=== PATIENT | male | born 1960 | race Caucasian/White ===

== ENCOUNTER 2017-10-30 11:47 | Emergency (ER) | payer MEDICARE, MEDICAID ==
[2017-10-30 13:56] LABS: Hematocrit 40 % (42-52); Mean Corpuscular HGB Conc 35 g/dl (31-36); Mean Corpuscular Hemoglobin 33 pg (27-31); Mean Corpuscular Volume 92 fL (80-94); Mean Platelet Volume 10 um3 (7.4-10.4); Platelet Count 162 10^3/ul (150-450); Red Blood Count 4.32 10^6/ul (4.0-5.4); Red Cell Distribution Width 14 % (10.5-15); White Blood Count 5.4 10^3/ul (3.5-10.8)
--- NOTE | 2017-10-30 13:57 | RAD ---
HISTORY: Shortness of breath COMPARISONS: March 25, 2012 VIEWS: 4: Frontal dual-energy and lateral views of the chest. FINDINGS: CARDIOMEDIASTINAL SILHOUETTE: The cardiomediastinal silhouette is normal. TIERRA: The tierra are normal. PLEURA: The costophrenic angles are sharp. No pleural abnormalities are noted. LUNG PARENCHYMA: The lungs are clear. ABDOMEN: The upper abdomen is clear. There is no subphrenic gas. BONES AND SOFT TISSUES: No bone or soft tissue abnormalities are noted. OTHER: None. IMPRESSION: NO ACTIVE CARDIOPULMONARY DISEASE.
[2017-10-30] MEDS ORDERED: Iodixanol* (CONTRAST) 320 MG/ML 100 ML SDV IV ONE (14:29)
[2017-10-30 14:37] LABS: ABS Basophils 0 10^3/ul (0-0.2); ABS Eosinophils 0.1 10^3/ul (0-0.6); ABS Lymphocytes 2.1 10^3/ul (1.0-4.8); ABS Monocytes 0.4 10^3/ul (0-0.8); ABS Neutrophils 2.7 10^3/ul (1.5-7.7); ABS Nucleated RBC 0 10^3/ul; Eosinophil % 1.8 % (0-6); Lymphocyte % 38.4 % (25-47); Nucleated Red Blood Cells % 0
[2017-10-30] MEDS ORDERED: Magnesium Oxide TAB* 400 MG PO ONE (15:00)
[2017-10-30 15:06] LABS: Urine Appearance Clear; Urine Blood Negative (Negative); Urine Color Yellow; Urine Ketones Negative (Negative); Urine Protein Negative (Negative); Urine Specific Gravity 1.009 (1.010-1.030); Urine Urobilinogen Negative (Negative)
--- NOTE | 2017-10-30 15:53 | RAD ---
INDICATION: Abdominal pain. COMPARISON: Comparison is made with a prior CT of the abdomen and pelvis from May 20, 2007. TECHNIQUE: A CT scan of the abdomen and pelvis was performed with intravenous and oral contrast following intravenous injection of 141 ml of Visipaque 320 nonionic contrast. Contiguous axial sections were obtained from the lung bases through the symphysis pubis. Images were reconstructed in the coronal and sagittal planes. FINDINGS: The lung bases are clear. No pleural effusion is present. The liver is mildly enlarged and decreased in attenuation consistent with fatty infiltration. The patient is status post cholecystectomy. The spleen is within normal limits in size. The pancreas appears normal. There is a 1 cm left adrenal nodule which appears unchanged. The kidneys are normal in size. There is a small subcentimeter cyst in the upper pole of the right kidney. No hydronephrosis is present. The aorta is normal in caliber and demonstrates homogeneous contrast opacification. No significant enlarged retroperitoneal lymph nodes are seen. The stomach, small and large bowel appear nondistended. The appendix is within normal limits. There is a surgical anastomosis in the mid sigmoid colon. There are scattered diverticuli within the colon. There is a prominent diverticulum present laterally at the level of the anastomosis. There is no evidence for diverticulitis or colitis. No free intraperitoneal air or fluid is seen. No significant focal osseous abnormality is seen. IMPRESSION: 1. NO EVIDENCE FOR ACUTE FINDING OR CAUSE FOR THE PATIENT'S ABDOMINAL PAIN IS SEEN. 2. MILD HEPATOMEGALY AND HEPATIC STEATOSIS. 3. STATUS POST CHOLECYSTECTOMY. 4. STATUS POST PARTIAL RESECTION OF THE SIGMOID COLON.
[2017-10-30 16:58] VITALS: BP 164/90
--- NOTE | 2017-10-31 17:51 | ED ---
Geoffrey Gonzalez Angela, scribed for Raafel Cantu MD on 10/30/17 at 1309 . Abdominal Pain/Male - HPI Summary HPI Summary: This pt is a 57 y/o male presenting to [facility] c/o lower abd pain for a few weeks now. Pt additionally reports nausea, constipation, dizziness, and SOB. He rates his abd pain 5/10 in severity. Pt states chronic use of ibuprofen with recent increase in ibuprofen use. He states he had the flu last week and has also been taking cold medications. Pt denies vomiting, diarrhea, chest pain. His PCP (Dr. Coleman) scheduled him to have a colonoscopy in 2 weeks at [facility] in [place]. PMHx: colon resection, colostomy bag (removed), neuropathy. Pt is a current smoker and may have COPD. - History of Current Complaint Chief Complaint: EDAbdPain Stated Complaint: POSSIBLE IBUPROFEN OVERDOSE Time Seen by Provider: 10/30/17 12:58 Hx Obtained From: Patient Onset/Duration: Lasting Days, Still Present Timing: Lasting Weeks Severity Currently: Moderate Pain Intensity: 5 Pain Scale Used: 0-10 Numeric Location: Other - lower abd Radiates: No Aggravating Factor(s): Nothing Alleviating Factor(s): Nothing Associated Signs And Symptoms: Positive: Dizzy, Constipation, Nausea. Negative : Chest Pain, Vomiting, Diarrhea - Allergies/Home Medications Allergies/Adverse Reactions: Allergies Allergy/AdvReac Type Severity Reaction Status Date / Time MS Cephalexin [From Keflex] Allergy Unknown Unknown Verified 11/14/14 08:34 Reaction Details MS Penicillins [Penicillins] Allergy Unknown Unknown Verified 11/14/14 08:34 Reaction Details MS Varenicline [From Chantix] Allergy Unknown Unknown Verified 11/14/14 08:34 Reaction Details PMH/Surg Hx/FS Hx/Imm Hx Endocrine/Hematology History: Reports: Hx Diabetes - type 2 Cardiovascular History: Denies: Hx Hypertension Musculoskeletal History: Reports: Hx of Fracture(s) - Left leg, Other Musculoskeletal History - carpal tunnel Neurological History: Reports: Hx Peripheral Neuropathy Infectious Disease History: No Infectious Disease History: Denies: Traveled Outside the [place] in Last 30 Days - Family History Known Family History: Positive: Cardiac Disease - Father: [place] Family History: Father: stroke. Mother: depression. - Social History Alcohol Use: None Substance Use Type: Reports: None Smoking Status (MU): Current Every Day Smoker Review of Systems Negative: Fever, Chills Negative: Chest Pain Positive: Shortness Of Breath Gastrointestinal: Other - constipation Positive: Abdominal Pain, Nausea. Negative: Vomiting, Diarrhea Neurological: Other - POS: dizziness All Other Systems Reviewed And Are Negative: Yes Physical Exam - Summary Physical Exam Summary: VITAL SIGNS: Reviewed. GENERAL: Patient is a well-developed and nourished male who is lying comfortable in the stretcher. Patient is not in any acute respiratory distress. HEAD AND FACE: Normocephalic and atraumatic. EYES: PERRLA, EOMI x 2, No injected conjunctiva. EARS: Hearing grossly intact. Ear canals and tympanic membranes are WNL. MOUTH: Oropharynx within normal limits. NECK: Supple, trachea is midline, no adenopathy, no JVD. CHEST: Symmetric, no tenderness at palpation LUNGS: bilateral slight wheezing CVS: RRR, S1 and S2 present, no murmurs or gallops appreciated. ABDOMEN: Soft. Mild tenderness in lower abd without rebound or guarding. No signs of distention. Positive bowel sounds. No masses palpated. No abdominal bruit or pulsations. EXTREMITIES: FROM in all major joints, no edema, no cyanosis or clubbing. NEURO: Alert and oriented x 3. No acute neurological deficits. Speech is normal. SKIN: Dry and warm. Multiple well healed scars on abd. Triage Information Reviewed: Yes Vital Signs On Initial Exam: Initial Vitals Temp Pulse Resp BP Pulse Ox 95.4 F 101 26 222/148 97 10/30/17 11:49 10/30/17 11:49 10/30/17 11:49 10/30/17 11:49 10/30/17 11:49 Vital Signs Reviewed: Yes Diagnostics - Vital Signs Vital Signs Temp Pulse Resp BP Pulse Ox 10/30/17 11:49 95.4 F 101 26 222/148 97 - Laboratory Lab Results: Lab Results 10/30/17 10/30/17 10/30/17 Range/Units 13:48 13:48 13:48 WBC 5.4 (3.5-10.8) 10^3/ul RBC 4.32 (4.0-5.4) 10^6/ul Hgb 14.0 (14.0-18.0) g/dl Hct 40 L (42-52) % MCV 92 (80-94) fL MCH 33 H (27-31) pg MCHC 35 (31-36) g/dl RDW 14 (10.5-15) % Plt Count 162 (150-450) 10^3/ul MPV 10 (7.4-10.4) um3 Neut % (Auto) 51.2 (38-83) % Lymph % (Auto) 38.4 (25-47) % Dawson % (Auto) 8.0 (1-9) % Eos % (Auto) 1.8 (0-6) % Baso % (Auto) 0.6 (0-2) % Absolute Neuts (auto) 2.7 (1.5-7.7) 10^3/ul Absolute Lymphs (auto) 2.1 (1.0-4.8) 10^3/ul Absolute Monos (auto) 0.4 (0-0.8) 10^3/ul Absolute Eos (auto) 0.1 (0-0.6) 10^3/ul Absolute Basos (auto) 0 (0-0.2) 10^3/ul Absolute Nucleated RBC 0 10^3/ul Nucleated RBC % 0 Giant Platelets Present Sodium 135 (133-145) mmol/L Potassium 3.8 (3.5-5.0) mmol/L Chloride 103 (101-111) mmol/L Carbon Dioxide 28 (22-32) mmol/L Anion Gap 4 (2-11) mmol/L BUN 8 (6-24) mg/dL Creatinine 0.74 (0.67-1.17) mg/dL Est GFR ( Amer) 140.2 (>60) Est GFR (Non-Af Amer) 109.0 (>60) BUN/Creatinine Ratio 10.8 (8-20) Glucose 218 H (70-100) mg/dL Calcium 9.2 (8.6-10.3) mg/dL Magnesium 1.6 L (1.9-2.7) mg/dL Total Bilirubin 0.60 (0.2-1.0) mg/dL AST 19 (13-39) U/L ALT 19 (7-52) U/L Alkaline Phosphatase 72 (34-104) U/L Troponin I 0.01 (<0.04) ng/mL C-Reactive Protein 1.48 (< 5.00) mg/L B-Natriuretic Peptide 47 ( - 100) pg/mL Total Protein 6.8 (6.4-8.9) g/dL Albumin 3.8 (3.2-5.2) g/dL Globulin 3.0 (2-4) g/dL Albumin/Globulin Ratio 1.3 (1-3) Lipase 18 (11.0-82.0) U/L Urine Color Urine Appearance Urine pH (5-9) Ur Specific [place] (1.010-1.030) Urine Protein (Negative) Urine Ketones (Negative) Urine Blood (Negative) Urine Nitrate (Negative) Urine Bilirubin (Negative) Urine Urobilinogen (Negative) Ur Leukocyte Esterase (Negative) Urine Glucose (Negative) 10/30/17 Range/Units 14:44 WBC (3.5-10.8) 10^3/ul RBC (4.0-5.4) 10^6/ul Hgb (14.0-18.0) g/dl Hct (42-52) % MCV (80-94) fL MCH (27-31) pg MCHC (31-36) g/dl RDW (10.5-15) % Plt Count (150-450) 10^3/ul MPV (7.4-10.4) um3 Neut % (Auto) (38-83) % Lymph % (Auto) (25-47) % Dawson % (Auto) (1-9) % Eos % (Auto) (0-6) % Baso % (Auto) (0-2) % Absolute Neuts (auto) (1.5-7.7) 10^3/ul Absolute Lymphs (auto) (1.0-4.8) 10^3/ul Absolute Monos (auto) (0-0.8) 10^3/ul Absolute Eos (auto) (0-0.6) 10^3/ul Absolute Basos (auto) (0-0.2) 10^3/ul Absolute Nucleated RBC 10^3/ul Nucleated RBC % Giant Platelets Sodium (133-145) mmol/L Potassium (3.5-5.0) mmol/L Chloride (101-111) mmol/L Carbon Dioxide (22-32) mmol/L Anion Gap (2-11) mmol/L BUN (6-24) mg/dL Creatinine (0.67-1.17) mg/dL Est GFR ( Amer) (>60) Est GFR (Non-Af Amer) (>60) BUN/Creatinine Ratio (8-20) Glucose (70-100) mg/dL Calcium (8.6-10.3) mg/dL Magnesium (1.9-2.7) mg/dL Total Bilirubin (0.2-1.0) mg/dL AST (13-39) U/L ALT (7-52) U/L Alkaline Phosphatase (34-104) U/L Troponin I (<0.04) ng/mL C-Reactive Protein (< 5.00) mg/L B-Natriuretic Peptide ( - 100) pg/mL Total Protein (6.4-8.9) g/dL Albumin (3.2-5.2) g/dL Globulin (2-4) g/dL Albumin/Globulin Ratio (1-3) Lipase (11.0-82.0) U/L Urine Color Yellow Urine Appearance Clear Urine pH 6.0 (5-9) Ur Specific [place] 1.009 L (1.010-1.030) Urine Protein Negative (Negative) Urine Ketones Negative (Negative) Urine Blood Negative (Negative) Urine Nitrate Negative (Negative) Urine Bilirubin Negative (Negative) Urine Urobilinogen Negative (Negative) Ur Leukocyte Esterase Negative (Negative) Urine Glucose 3+(>=500 mg/dl) H (Negative) Result Diagrams: 10/30/17 13:48 10/30/17 13:48 Lab Statement: Any lab studies that have been ordered have been reviewed, and results considered in the medical decision making process. - Radiology Chest XR Xray Interpretation: No Acute Changes - IMPRESSION: No active cardiopulmonary disease. Dr. Cantu has reviewed this radiology report. Radiology Interpretation Completed By: Radiologist - CT Abdomen/Pelvis CT CT Interpretation: Positive (See Comments) - IMPRESSION: 1. No evidence for acute finding or cause for the patient's abdominal pain is seen. 2. Mild hepatomegaly and hepatic steatosis. 3. Status post cholecystectomy. 4. Status post partial resection of the sigmoid colon. Dr. Cantu has reviewed this radiology report. CT Interpretation Completed By: Radiologist - EKG 13:07 Cardiac Rate: NL EKG Rhythm: Sinus Rhythm - at 71 bpm EKG Interpretation: No ST elevation. Normal axis. Re-Evaluation - Re-Evaluation First Eval Re-Evaluation Time: 16:40 Comment: I discussed XR, CT and lab results with the pt. Abdominal Pain Fem Course/Dx - Course Course Of Treatment: This pt is a 57 y/o male presenting to [facility] c/o lower abd pain for a few weeks now. Pt additionally reports nausea, constipation, dizziness, and SOB. He rates his abd pain 5/10 in severity. Pt states chronic use of ibuprofen with recent increase in ibuprofen use. He states he had the flu last week and has also been taking cold medications. Pt denies vomiting, diarrhea, chest pain. His PCP (Dr. Coleman) scheduled him to have a colonoscopy in 2 weeks at [facility] in [place]. PMHx: colon resection, colostomy bag (removed) , neuropathy. Pt is a current smoker and may have COPD. Test results without any significant abnormalities except for glucose of 218. Urinalysis is negative for UTI. Abdomen/pelvis CT shows 1. No evidence for acute finding or cause for the patient's abdominal pain is seen. 2. Mild hepatomegaly and hepatic steatosis. 3. Status post cholecystectomy. 4. Status post partial resection of the sigmoid colon. In the ED course I believe the symptoms are secondary to constipation since he has not had a bowel movement in 3 days. The pt also has runny nose, nasal congestion, and dry cough. Chest XR ruled out pneumonia. I will treat pt as presumptive influenza and will give the pt a prescription for Tamiflu. I discussed the plan with the pt and he agrees. Pt is hemodynamically stable, alert and oriented x3. - Diagnoses Differential Diagnosis/HQI/PQRI: Appendicitis, Bowel Obstruction, Constipation, Diverticulitis, Renal Colic, Urinary Tract Infection Provider Diagnoses: Abdominal pain, Constipation Discharge - Discharge Plan Condition: Stable Disposition: HOME Prescriptions: Oseltamivir CAP* [Tamiflu CAP*] 75 mg PO BID #10 cap Polyethylene Glycol 3350* [Miralax*] 17 gm PO DAILY #12 packet Patient Education Materials: Constipation (ED), Abdominal Pain (ED) Referrals: Yessica Coleman MD [Primary Care Provider] - 3 Days Additional Instructions: Please follow up with your primary care provider. RETURN TO THE ED FOR ANY WORSENING SYMPTOMS. The documentation as recorded by the scribe, Hale,Dulce Maria accurately reflects the service I personally performed and the decisions made by me, Rafael Cantu MD.
== END 2017-10-30 16:57 | disposition home or self-care (01) ==
LOC: ED 11:47
DX: R10.30 Lower abdominal pain, unspecified (principal); K59.00 Constipation, unspecified; R09.81 Nasal congestion; R05 Cough; K76.0 Fatty (change of) liver, not elsewhere classified; F17.200 Nicotine dependence, unspecified, uncomplicated; Z90.49 Acquired absence of other specified parts of digestive tract; Z88.3 Allergy status to other anti-infective agents; Z88.0 Allergy status to penicillin; Z88.8 Allergy status to other drugs, medicaments and biological substances
CPT/HCPCS: 36415; 71046; 74177; 80053; 81003; 83690; 83735; 83880; 84484; 85025; 86140; 93005; 99282; Q9967

== ENCOUNTER 2023-04-12 17:21 | Inpatient (IN) ==
[2023-04-12] MEDS ORDERED: NS 0.9% 1000 ml BAG 1,000 ML IV ONE (18:19)
[2023-04-12] MEDS ORDERED: Ondansetron 4 mg VIAL 2 MG/ML 2 ml VIAL IV ONE (18:25)
[2023-04-12] MEDS ORDERED: Morphine 4 MG/ML VIAL (1 ml) IV ONE ×2 (18:25→23:30)
[2023-04-12 18:45] LABS: ABS Lymphocytes 0.6 10^3/uL (1.0-4.8); ABS Monocytes 0.5 10^3/uL (0.0-1.1); ABS Neutrophils 3.2 10^3/uL (1.5-7.6); Eosinophil % 0.4 %; Hematocrit 36.8 % (38-53); Lymphocyte % 13.7 %; Mean Corpuscular Hemoglobin 33.3 pg (27-33); Mean Corpuscular Hgb Conc 35.4 g/dL (31-36); Mean Corpuscular Volume 93.9 fL (80-97); Mean Platelet Volume 8.7 fL (7.5-11.2); Nucleated Red Blood Cells % 0.1 /100 WBC (0.0-0.4); Platelet Count 249 10^3/uL (150-450); Red Blood Count 3.91 10^6/uL (4.06-5.63); Red Cell Distribution Width 13.5 % (12-17); White Blood Count 4.3 10^3/uL (3.6-10.2)
[2023-04-12 19:24] LABS: TSH Ultra Thyroid Stim Horm 0.48 mcIU/mL (0.34-5.60)
[2023-04-12 19:27] LABS: Albumin 3.4 g/dL (3.2-5.2); Albumin/Globulin Ratio 1.1 (1-3); Calcium 9.3 mg/dL (8.6-10.3); Creatinine, Serum 0.77 mg/dL (0.67-1.17); Magnesium 1.4 mg/dL (1.9-2.7); Potassium 3.8 mmol/L (3.5-5.0); Total Bilirubin 0.7 mg/dL (0.2-1.0); Total Protein 6.4 g/dL (6.4-8.9); eGFR CKD-EPI 101.2 (>60)
[2023-04-12] MEDS ORDERED: Iodixanol (CONTRAST) 320 MG/ML 100 ML SDV IV ONE (21:35)
[2023-04-12] MEDS ORDERED: Magnesium Sulfate 2 gm BAG 2 GM/50 ML BAG IVPB ONE (21:36)
[2023-04-12 22:36] LABS: Urine Appearance Clear; Urine Bilirubin Negative (Negative); Urine Blood Negative (Negative); Urine Color Yellow; Urine Glucose 2+(150 mg/dL) (Negative); Urine Ketones 1+ (Negative); Urine Nitrite Negative (Negative); Urine Protein Negative (Negative); Urine Urobilinogen Negative (Negative)
[2023-04-12] MEDS ORDERED: oxyCODONE/Acetamin 5/325 mg TAB PO ONE (22:56)
[2023-04-12] MEDS ORDERED: Hemorrhoidal OINT 1 TUBE PR ONE (23:43)
[2023-04-12] MEDS ORDERED: Ondansetron 4 mg VIAL 2 MG/ML 2 ml VIAL IV PRN (23:53)
[2023-04-12] MEDS: Witch Hazel PAD JAR TOPICAL SCH (23:59)
[2023-04-13] MEDS: Lactated Ringers 1000 ml BAG 1,000 ML IV SCH ×2 (00:42→13:08)
[2023-04-13] MEDS: HYDROmorphone 0.5 MG/0.5 ML SYRINGE IV SLOW PU PRN ×4 (01:53→19:58)
[2023-04-13] MEDS ORDERED: Droperidol 5 MG/2 ML 2 ML VIAL IV ONE (04:09)
[2023-04-13] MEDS ORDERED: HYDROmorphone 1 MG/1 ML SYRINGE IV SLOW PU ONE (04:28)
[2023-04-13 05:10] LABS: ABS Eosinophils 0.1 10^3/uL (0.0-0.5); ABS Lymphocytes 0.9 10^3/uL (1.0-4.8); ABS Monocytes 0.5 10^3/uL (0.0-1.1); ABS Neutrophils 1.7 10^3/uL (1.5-7.6); Hematocrit 33.6 % (38-53); Lymphocyte % 27.1 %; Mean Corpuscular Hgb Conc 35.8 g/dL (31-36); Mean Platelet Volume 8.6 fL (7.5-11.2); Nucleated Red Blood Cells % 0.1 /100 WBC (0.0-0.4); Platelet Count 213 10^3/uL (150-450); Red Blood Count 3.65 10^6/uL (4.06-5.63); Red Cell Distribution Width 13.4 % (12-17); White Blood Count 3.2 10^3/uL (3.6-10.2)
[2023-04-13 05:28] LABS: Calcium 8.8 mg/dL (8.6-10.3); Creatinine, Serum 0.74 mg/dL (0.67-1.17); Magnesium 1.6 mg/dL (1.9-2.7); Potassium 3.6 mmol/L (3.5-5.0); eGFR CKD-EPI 102.4 (>60)
[2023-04-13] MEDS ORDERED: Magnesium Sulfate IV 3 GM in NS 0.9% 100 ml BAG 100 ML IVPB ONE (07:14)
[2023-04-13] MEDS: Witch Hazel PAD JAR TOPICAL SCH (09:05)
[2023-04-13] MEDS: Insulin GLARGINE 100 un/ml 10 ml VIAL SUBCUT SCH ×2 (09:06→20:21)
[2023-04-13] MEDS ORDERED: Benzocaine (plain) Lozenge 15 MG PO PRN (11:49)
[2023-04-13] MEDS: DULoxetine DR 30 mg CAP PO SCH (13:01)
[2023-04-14] MEDS: HYDROmorphone 0.5 MG/0.5 ML SYRINGE IV SLOW PU PRN ×2 (01:40→08:28)
[2023-04-14 07:37] LABS: ABS Eosinophils 0.1 10^3/uL (0.0-0.5); ABS Lymphocytes 0.9 10^3/uL (1.0-4.8); ABS Monocytes 0.5 10^3/uL (0.0-1.1); ABS Neutrophils 2.5 10^3/uL (1.5-7.6); Eosinophil % 3.5 %; Hematocrit 34.8 % (38-53); Hemoglobin 12.6 g/dL (13.2-16.3); Lymphocyte % 21.8 %; Mean Corpuscular Hemoglobin 33.5 pg (27-33); Mean Platelet Volume 8.8 fL (7.5-11.2); Platelet Count 225 10^3/uL (150-450); Red Blood Count 3.75 10^6/uL (4.06-5.63); Red Cell Distribution Width 13.6 % (12-17)
[2023-04-14 07:49] LABS: Calcium 8.9 mg/dL (8.6-10.3); Creatinine, Serum 0.66 mg/dL (0.67-1.17); Magnesium 1.6 mg/dL (1.9-2.7); Potassium 3.6 mmol/L (3.5-5.0)
[2023-04-14] MEDS ORDERED: Magnesium Sulf 4 GM/100 ML IV 4,000 MG/100 ML BAG IVPB ONE (07:59)
[2023-04-14] MEDS: Insulin GLARGINE 100 un/ml 10 ml VIAL SUBCUT SCH ×2 (08:28→21:19)
[2023-04-14] MEDS: Witch Hazel PAD JAR TOPICAL SCH (10:15)
[2023-04-14] MEDS: DULoxetine DR 30 mg CAP PO SCH (10:15)
[2023-04-14 17:02] LABS: Calcium 8.8 mg/dL (8.6-10.3); Creatinine, Serum 0.65 mg/dL (0.67-1.17); Potassium 3.5 mmol/L (3.5-5.0); eGFR CKD-EPI 106.5 (>60)
[2023-04-15 06:23] LABS: ABS Eosinophils 0.1 10^3/uL (0.0-0.5); ABS Lymphocytes 0.9 10^3/uL (1.0-4.8); ABS Monocytes 0.5 10^3/uL (0.0-1.1); Eosinophil % 3.9 %; Hematocrit 33.6 % (38-53); Hemoglobin 12.4 g/dL (13.2-16.3); Lymphocyte % 25.9 %; Mean Corpuscular Hemoglobin 33.8 pg (27-33); Mean Corpuscular Hgb Conc 36.8 g/dL (31-36); Mean Corpuscular Volume 91.9 fL (80-97); Mean Platelet Volume 8.7 fL (7.5-11.2); Platelet Count 200 10^3/uL (150-450); Red Blood Count 3.66 10^6/uL (4.06-5.63); Red Cell Distribution Width 13.2 % (12-17); White Blood Count 3.6 10^3/uL (3.6-10.2)
[2023-04-15] MEDS ORDERED: Magnesium Sulfate 2 gm BAG 2 GM/50 ML BAG IVPB ONE (07:24)
[2023-04-15] MEDS: Insulin GLARGINE 100 un/ml 10 ml VIAL SUBCUT SCH (08:07)
[2023-04-15] MEDS: DULoxetine DR 30 mg CAP PO SCH (08:08)
[2023-04-15] MEDS: Witch Hazel PAD JAR TOPICAL SCH (08:09)
[2023-04-15 09:38] VITALS: BP 146/77
[2023-04-15] MEDS ORDERED: Polyethylene Glycol 3350 17 GM PACKET PO SCH (10:00)
== END 2023-04-15 12:00 | disposition home or self-care (01) | DRG 254 ==
LOC: EDHOLD 17:21 → ED 17:21 → SUATTDRO 23:53 → OBSVTOIN 23:53 → MED 04-13 14:43
PROVIDERS: ADMIT Student in an Organized Health Care Education/Training Program; ATTEND Internal Medicine

== ENCOUNTER 2023-09-05 10:16 | Observation (INO) ==
[~2023-09-05 10:16] MED LIST: Buffered Lidocaine 1% SYRIN 1 ml INTRADERM ONE; Famotidine IV 10 MG/ML 2 ml VIAL (20 mg) IV ONE; HYDROcodone/ACETAMIN 5/325 mg TAB PO PRN; Lactated Ringers 1000 ml BAG 1,000 ML IV SCH; Metoclopramide 5 MG/ML VIAL (10 mg) IV PRN; Naloxone 0.4 mg VIAL 0.4 mg/ml 1 ml VIAL IV PRN; Ondansetron 4 mg VIAL 2 MG/ML 2 ml VIAL IV PRN
[2023-09-05] MEDS ORDERED: Vancomycin 1,500 MG in NS 0.9% 250 ml 250 ML IVPB ONE (12:00)
[2023-09-05] MEDS ORDERED: Famotidine IV 10 MG/ML 2 ml VIAL (20 mg) ONE (12:00)
[2023-09-05 12:12] LABS: Rapid COVID-19 Molecular Undetected (Undetected)
[2023-09-05] MEDS ORDERED: Bupivacaine 0.25% SDV 30 ML ONE (12:16)
[2023-09-05] MEDS ORDERED: Propofol 10 MG/ML 20 ML BTL ONE (12:21)
[2023-09-05] MEDS ORDERED: Lidocaine 2% PF 5 ML VIAL ONE ×2 (12:21→13:00)
[2023-09-05] MEDS ORDERED: fentaNYL 100 mcg/2 ml 50 MCG/ML VIAL ONE ×2 (12:22→15:03)
[2023-09-05] MEDS ORDERED: Midazolam 2 mg/2 ml VIAL 1 mg/ml 2 ml VIAL (2 mg) ONE (12:22)
[2023-09-05] MEDS ORDERED: Bupivacaine 0.5% SDV PF 30ML VIAL ONE ×2 (12:26→12:58)
[2023-09-05] MEDS ORDERED: Ondansetron 4 mg VIAL 2 MG/ML 2 ml VIAL ONE (13:52)
[2023-09-05] MEDS ORDERED: Naloxone Nasal Spray 4 MG/0.1 ML NASAL.SPR INTRANASAL PRN (14:53)
[2023-09-05] MEDS: fentaNYL 100 mcg/2 ml 50 MCG/ML VIAL IV PRN ×2 (15:05→15:33)
[2023-09-05] MEDS ORDERED: Dextrose 50% Syringe 50 ml 25 GM/50 ML SYRINGE IV PUSH PRN (15:18)
[2023-09-05] MEDS ORDERED: Labetalol IV 5 MG/ML 20 ml VIAL ONE (15:46)
[2023-09-05] MEDS ORDERED: Labetalol IV 5 MG/ML 20 ml VIAL IV PUSH PRN (15:59)
[2023-09-05] MEDS ORDERED: Ondansetron 4 mg VIAL 2 MG/ML 2 ml VIAL IV PRN (16:24)
[2023-09-05] MEDS ORDERED: Vancomycin per Pharmacy 1 EA NOTE FOLLOW UP SCH (16:24)
[2023-09-05] MEDS ORDERED: Ondansetron ODT 4 mg TAB 4 MG TAB PO PRN (16:24)
[2023-09-05] MEDS ORDERED: Magnesium Hydroxide LIQ 30 ML UDC PO PRN (16:24)
[2023-09-05] MEDS ORDERED: Lactulose 30 ml UDC PO PRN (16:24)
[2023-09-05] MEDS ORDERED: Polyethylene Glycol 3350 17 GM PACKET PO PRN (17:20)
[2023-09-05] MEDS ORDERED: Morphine ORAL.SOLN 10 mg 2 mg/ml UDC 5 ml (10 mg) PO PRN (17:33)
[2023-09-05] MEDS: Morphine ORAL.SOLN 10 mg 2 mg/ml UDC 5 ml (10 mg) PO PRN (17:47)
[2023-09-05] MEDS: Magnesium Hydroxide LIQ 30 ML UDC PO SCH (21:26)
[2023-09-05] MEDS: Morphine 2 MG/ML SYRINGE IV PRN (22:58)
[2023-09-05] MEDS: Vancomycin 1000 MG in NS 0.9% 250 ML IVPB SCH (23:06)
[2023-09-06 06:30] LABS: Hematocrit 31.3 % (38-53); Hemoglobin 10.9 g/dL (13.2-16.3); Mean Corpuscular Hemoglobin 35.6 pg (27-33); Mean Corpuscular Hgb Conc 34.8 g/dL (31-36); Mean Corpuscular Volume 102.1 fL (80-97); Platelet Count 211 10^3/uL (150-450); Red Blood Count 3.07 10^6/uL (4.06-5.63); Red Cell Distribution Width 14.6 % (12-17); White Blood Count 9.6 10^3/uL (3.6-10.2)
[2023-09-06 07:14] LABS: Calcium 8.8 mg/dL (8.6-10.3); Creatinine, Serum 0.75 mg/dL (0.67-1.17); Magnesium 1.5 mg/dL (1.9-2.7); Potassium 4.3 mmol/L (3.5-5.0); eGFR CKD-EPI 101.4 (>60)
[2023-09-06] MEDS: Vitamin THERAPEUTIC TAB PO SCH (09:01)
[2023-09-06] MEDS: DULoxetine DR 30 mg CAP PO SCH (09:11)
[2023-09-06] MEDS: Vancomycin 1000 MG in NS 0.9% 250 ML IVPB SCH ×3 (09:11→17:53)
[2023-09-06] MEDS: Magnesium Hydroxide LIQ 30 ML UDC PO SCH ×2 (09:11→21:20)
[2023-09-06] MEDS: Morphine ORAL.SOLN 10 mg 2 mg/ml UDC 5 ml (10 mg) PO PRN (10:02)
[2023-09-06] MEDS ORDERED: Saline NASAL SPRAY 0.65% BTL BOTH NARES PRN (10:06)
[2023-09-06] MEDS: Enoxaparin 40 MG/0.4 ML SYR SUBCUT SCH (14:00)
[2023-09-06] MEDS ORDERED: Vancomycin Trough Check NOTE FOLLOW UP ONE (16:30)
[2023-09-06] MEDS: Morphine 2 MG/ML SYRINGE IV PRN (23:20)
[2023-09-07 06:17] LABS: Platelet Count 179 10^3/uL (150-450)
[2023-09-07] MEDS ORDERED: Vancomycin 1,500 MG in NS 0.9% 250 ml 250 ML IVPB SCH (06:30)
[2023-09-07 06:58] LABS: Hematocrit 31.4 % (38-53); Hemoglobin 10.8 g/dL (13.2-16.3); Mean Platelet Volume 9.4 fL (7.5-11.2)
[2023-09-07] MEDS ORDERED: Magnesium Sulfate 2 gm BAG 2 GM/50 ML BAG IVPB ONE (07:25)
[2023-09-07] MEDS: Magnesium Hydroxide LIQ 30 ML UDC PO SCH (09:01)
[2023-09-07] MEDS: DULoxetine DR 30 mg CAP PO SCH (09:02)
[2023-09-07] MEDS: Vitamin THERAPEUTIC TAB PO SCH (09:03)
[2023-09-07] MEDS ORDERED: Magnesium Sulfate IV 1GM/100ML 1 GM/100 ML BAG IV ONE (09:25)
[2023-09-07] MEDS ORDERED: Oritavancin 400 mg/40 mL Vial 1,200 MG in D5W 1000 ML BAG 880 ML IV ONE (10:00)
[2023-09-07] MEDS: Enoxaparin 40 MG/0.4 ML SYR SUBCUT SCH (13:26)
[2023-09-07 16:51] VITALS: BP 140/64
[2023-09-08] MEDS ORDERED: Vancomycin Trough Check NOTE FOLLOW UP ONE (06:00)
== END 2023-09-07 18:30 | disposition home or self-care (01) ==
LOC: OR 10:16 → SSU 10:16
PROVIDERS: ADMIT Orthopaedic Surgery; ATTEND Orthopaedic Surgery

== ENCOUNTER 2023-09-09 16:52 | Inpatient (IN) ==
[2023-09-09 18:28] LABS: ABS Eosinophils 0.1 10^3/uL (0.0-0.5); ABS Lymphocytes 0.4 10^3/uL (1.0-4.8); ABS Monocytes 0.7 10^3/uL (0.0-1.1); ABS Neutrophils 7.6 10^3/uL (1.5-7.6); Eosinophil % 0.6 %; Hematocrit 31.2 % (38-53); Hemoglobin 10.7 g/dL (13.2-16.3); Lymphocyte % 4.4 %; Mean Corpuscular Hgb Conc 34.2 g/dL (31-36); Mean Corpuscular Volume 102.4 fL (80-97); Mean Platelet Volume 9.1 fL (7.5-11.2); Platelet Count 236 10^3/uL (150-450); Red Blood Count 3.05 10^6/uL (4.06-5.63); Red Cell Distribution Width 14.6 % (12-17); White Blood Count 8.7 10^3/uL (3.6-10.2)
[2023-09-09 18:49] LABS: Albumin 3.7 g/dL (3.2-5.2); Albumin/Globulin Ratio 0.8 (1-3); C Reactive Protein 230.33 mg/L (<8.01); Calcium 9.5 mg/dL (8.6-10.3); Creatinine, Serum 0.95 mg/dL (0.67-1.17); Globulin 4.6 g/dL (2-4); Potassium 3.9 mmol/L (3.5-5.0); Total Bilirubin 0.5 mg/dL (0.2-1.0); Total Protein 8.3 g/dL (6.4-8.9); eGFR CKD-EPI 89.9 (>60)
[2023-09-09] MEDS ORDERED: Cefepime 2 GM in Dextrose 2 GM/50 ML BAG IV ONE (19:30)
[2023-09-09] MEDS ORDERED: Vancomycin 1,500 MG in NS 0.9% 250 ml 250 ML IVPB ONE (20:00)
[2023-09-09] MEDS ORDERED: NS 0.9% 1000 ml BAG 1,000 ML IV ONE (20:24)
[2023-09-09] MEDS ORDERED: Naloxone Nasal Spray 4 MG/0.1 ML NASAL.SPR INTRANASAL PRN (21:36)
[2023-09-09] MEDS: Insulin GLARGINE 100 un/ml 10 ml VIAL SUBCUT SCH (22:34)
[2023-09-09] MEDS: Heparin 5000 UNITS/ML 1 mL VIAL SUBCUT SCH (22:37)
[2023-09-10] MEDS ORDERED: Vancomycin per Pharmacy 1 EA NOTE FOLLOW UP SCH (05:00)
[2023-09-10] MEDS: Heparin 5000 UNITS/ML 1 mL VIAL SUBCUT SCH ×3 (05:56→22:21)
[2023-09-10 06:23] LABS: ABS Lymphocytes 0.2 10^3/uL (1.0-4.8); ABS Monocytes 0.7 10^3/uL (0.0-1.1); ABS Neutrophils 5.6 10^3/uL (1.5-7.6); Eosinophil % 0.5 %; Hematocrit 25.4 % (38-53); Hemoglobin 8.9 g/dL (13.2-16.3); Lymphocyte % 3.6 %; Mean Corpuscular Hemoglobin 35.4 pg (27-33); Mean Corpuscular Hgb Conc 34.9 g/dL (31-36); Mean Corpuscular Volume 101.5 fL (80-97); Mean Platelet Volume 8.6 fL (7.5-11.2); Platelet Count 196 10^3/uL (150-450); Red Blood Count 2.51 10^6/uL (4.06-5.63); Red Cell Distribution Width 14.4 % (12-17); White Blood Count 6.6 10^3/uL (3.6-10.2)
[2023-09-10 06:41] LABS: Calcium 8.1 mg/dL (8.6-10.3); Creatinine, Serum 0.58 mg/dL (0.67-1.17); Magnesium 1.6 mg/dL (1.9-2.7); eGFR CKD-EPI 109.6 (>60)
[2023-09-10] MEDS ORDERED: Potassium Chlor 20 meq TAB.ER PO ONE (07:28)
[2023-09-10] MEDS: DULoxetine DR 30 mg CAP PO SCH (08:15)
[2023-09-10] MEDS ORDERED: Vancomycin 1,500 MG in NS 0.9% 250 ml 250 ML IVPB SCH (09:00)
[2023-09-10] MEDS ORDERED: Albuterol HFA INHALER 8 gm MDI INH PRN (09:02)
[2023-09-10] MEDS: Mometasone/Formoter 100/5 MDI INH SCH ×2 (10:52→20:03)
[2023-09-10] MEDS: Insulin GLARGINE 100 un/ml 10 ml VIAL SUBCUT SCH ×2 (11:06→22:21)
[2023-09-10] MEDS: Morphine ORAL.SOLN 10 mg 2 mg/ml UDC 5 ml (10 mg) PO PRN ×2 (12:43→17:23)
[2023-09-10] MEDS: Amoxicillin/Clavul 500/125 TAB (Augmentin 500 mg tab) PO SCH ×2 (12:44→22:23)
[2023-09-11] MEDS: Morphine ORAL.SOLN 10 mg 2 mg/ml UDC 5 ml (10 mg) PO PRN ×3 (03:41→20:24)
[2023-09-11] MEDS: Heparin 5000 UNITS/ML 1 mL VIAL SUBCUT SCH ×3 (06:27→20:25)
[2023-09-11] MEDS ORDERED: Vancomycin Trough Check NOTE FOLLOW UP ONE (08:30)
[2023-09-11] MEDS: Mometasone/Formoter 100/5 MDI INH SCH ×2 (08:39→19:29)
[2023-09-11] MEDS: DULoxetine DR 30 mg CAP PO SCH ×2 (09:43→20:25)
[2023-09-11] MEDS: Insulin GLARGINE 100 un/ml 10 ml VIAL SUBCUT SCH ×2 (09:43→20:24)
[2023-09-11] MEDS: Amoxicillin/Clavul 500/125 TAB (Augmentin 500 mg tab) PO SCH (09:44)
[2023-09-11 09:52] LABS: ABS Lymphocytes 0.6 10^3/uL (1.0-4.8); ABS Monocytes 0.8 10^3/uL (0.0-1.1); ABS Neutrophils 5.8 10^3/uL (1.5-7.6); ABS Nucleated RBC 0.01 10^3/ul; Eosinophil % 0.4 %; Hematocrit 29.2 % (38-53); Hemoglobin 9.9 g/dL (13.2-16.3); Lymphocyte % 8.9 %; Mean Corpuscular Hemoglobin 34.4 pg (27-33); Mean Corpuscular Volume 101.1 fL (80-97); Mean Platelet Volume 9.2 fL (7.5-11.2); Nucleated Red Blood Cells % 0.1 %/100WBC (0.0-0.8); Platelet Count 270 10^3/uL (150-450); Red Blood Count 2.89 10^6/uL (4.06-5.63); Red Cell Distribution Width 14.5 % (12-17); White Blood Count 7.3 10^3/uL (3.6-10.2)
[2023-09-11 10:22] LABS: C Reactive Protein 212.54 mg/L (<8.01); Calcium 9.1 mg/dL (8.6-10.3); Creatinine, Serum 0.64 mg/dL (0.67-1.17); Magnesium 1.6 mg/dL (1.9-2.7); Potassium 3.8 mmol/L (3.5-5.0); eGFR CKD-EPI 106.4 (>60)
[2023-09-11 10:46] LABS: Folate 11.66 ng/mL (5.90-24.80)
[2023-09-11] MEDS: Cyanocobalamin INJ 1,000 MCG/ML VIAL 1 ML VIAL IM SCH (12:53)
[2023-09-11] MEDS ORDERED: Magnesium Sulfate 2 gm BAG 2 GM/50 ML BAG IVPB ONE (13:39)
[2023-09-11] MEDS ORDERED: Senna TAB 8.6 mg TAB PO PRN (13:53)
[2023-09-11] MEDS ORDERED: Magnesium Hydroxide LIQ 30 ML UDC PO PRN (13:53)
[2023-09-11] MEDS ORDERED: Zosyn per Pharmacy NOTE FOLLOW UP SCH (14:00)
[2023-09-11] MEDS ORDERED: Vancomycin per Pharmacy 1 EA NOTE FOLLOW UP SCH (14:00)
[2023-09-11] MEDS ORDERED: Vancomycin 1,500 MG in NS 0.9% 250 ml 250 ML IVPB ONE (14:00)
[2023-09-11] MEDS ORDERED: Piperacillin/Tazobac 3.375 BAG 3.375 GM/100 ML BAG IV ONE (15:00)
[2023-09-11] MEDS ORDERED: Magnesium Sulfate IV 1GM/100ML 1 GM/100 ML BAG IV ONE (15:39)
[2023-09-11] MEDS ORDERED: Vancomycin 2,000 MG in NS 0.9% 500 ml BAG 500 ML IVPB SCH (18:00)
[2023-09-11] MEDS: Magnesium Hydroxide LIQ 30 ML UDC PO SCH (20:25)
[2023-09-11] MEDS ORDERED: Gadoteridol (CONTRAST) 279.3 MG/ML 10 ML IV ONE (22:27)
[2023-09-11] MEDS: ZOSYN 3.375 GM Q8H per EXTENDED INFUSION IV SCH (23:07)
[2023-09-12] MEDS: Vancomycin 2,000 MG in NS 0.9% 500 ml BAG 500 ML IVPB SCH ×2 (03:32→10:56)
[2023-09-12] MEDS: Heparin 5000 UNITS/ML 1 mL VIAL SUBCUT SCH ×3 (06:00→23:10)
[2023-09-12] MEDS: ZOSYN 3.375 GM Q8H per EXTENDED INFUSION IV SCH ×3 (07:09→21:31)
[2023-09-12 07:11] LABS: ABS Basophils 0.1 10^3/uL (0.0-0.1); ABS Eosinophils 0.1 10^3/uL (0.0-0.5); ABS Lymphocytes 0.7 10^3/uL (1.0-4.8); ABS Monocytes 0.7 10^3/uL (0.0-1.1); ABS Neutrophils 5.1 10^3/uL (1.5-7.6); Eosinophil % 2.2 %; Hematocrit 25.7 % (38-53); Hemoglobin 8.9 g/dL (13.2-16.3); Lymphocyte % 10.6 %; Mean Corpuscular Hemoglobin 35.1 pg (27-33); Mean Corpuscular Hgb Conc 34.8 g/dL (31-36); Mean Platelet Volume 8.6 fL (7.5-11.2); Nucleated Red Blood Cells % 0.1 %/100WBC (0.0-0.8); Platelet Count 290 10^3/uL (150-450); Red Blood Count 2.55 10^6/uL (4.06-5.63); Red Cell Distribution Width 14.7 % (12-17); White Blood Count 6.8 10^3/uL (3.6-10.2)
[2023-09-12 07:26] LABS: Calcium 8.6 mg/dL (8.6-10.3); Creatinine, Serum 0.55 mg/dL (0.67-1.17); Magnesium 1.8 mg/dL (1.9-2.7); Potassium 3.9 mmol/L (3.5-5.0); eGFR CKD-EPI 111.4 (>60)
[2023-09-12] MEDS: Mometasone/Formoter 100/5 MDI INH SCH ×2 (07:56→19:27)
[2023-09-12] MEDS ORDERED: Magnesium Sulfate 2 gm BAG 2 GM/50 ML BAG IVPB ONE (08:05)
[2023-09-12] MEDS ORDERED: Saline NASAL SPRAY 0.65% BTL BOTH NARES PRN (08:48)
[2023-09-12] MEDS: Magnesium Hydroxide LIQ 30 ML UDC PO SCH ×2 (09:41→23:06)
[2023-09-12] MEDS: DULoxetine DR 30 mg CAP PO SCH (09:42)
[2023-09-12] MEDS: Insulin GLARGINE 100 un/ml 10 ml VIAL SUBCUT SCH ×2 (09:42→23:10)
[2023-09-12] MEDS: Cyanocobalamin INJ 1,000 MCG/ML VIAL 1 ML VIAL IM SCH (10:56)
[2023-09-12] MEDS ORDERED: Iodixanol 320 (CONTRAST) 100 ML SDV ONE (12:43)
[2023-09-12] MEDS ORDERED: Heparin 2 UNITS/ML IVPREMIX 3,000 UNIT/1,500 ML BAG IV ONE (12:43)
[2023-09-12] MEDS ORDERED: Lidocaine 1% VIAL 10 MG/ML 30 ML VIAL ONE (12:43)
[2023-09-12] MEDS ORDERED: Midazolam 5 mg/5 ml VIAL 1 mg/ml 5 ml VIAL (5 mg) ONE (13:08)
[2023-09-12] MEDS ORDERED: fentaNYL 100 mcg/2 ml 50 MCG/ML VIAL ONE (13:08)
[2023-09-12] MEDS ORDERED: Iodixanol (CONTRAST) 320 MG/ML 100 ML SDV IV ONE (14:41)
[2023-09-13] MEDS: Vancomycin 2,000 MG in NS 0.9% 500 ml BAG 500 ML IVPB SCH ×2 (01:57→19:15)
[2023-09-13] MEDS: Morphine ORAL.SOLN 10 mg 2 mg/ml UDC 5 ml (10 mg) PO PRN ×2 (04:28→20:44)
[2023-09-13] MEDS: ZOSYN 3.375 GM Q8H per EXTENDED INFUSION IV SCH ×3 (05:20→23:08)
[2023-09-13] MEDS: Heparin 5000 UNITS/ML 1 mL VIAL SUBCUT SCH ×3 (05:21→23:11)
[2023-09-13 06:30] LABS: ABS Eosinophils 0.2 10^3/uL (0.0-0.5); ABS Lymphocytes 0.7 10^3/uL (1.0-4.8); ABS Monocytes 0.7 10^3/uL (0.0-1.1); ABS Neutrophils 4.5 10^3/uL (1.5-7.6); ABS Nucleated RBC 0.01 10^3/ul; Eosinophil % 2.6 %; Hematocrit 25.8 % (38-53); Hemoglobin 8.9 g/dL (13.2-16.3); Lymphocyte % 11.6 %; Mean Corpuscular Hemoglobin 34.6 pg (27-33); Mean Corpuscular Hgb Conc 34.6 g/dL (31-36); Mean Corpuscular Volume 100.1 fL (80-97); Mean Platelet Volume 8.5 fL (7.5-11.2); Nucleated Red Blood Cells % 0.1 %/100WBC (0.0-0.8); Platelet Count 345 10^3/uL (150-450); Red Blood Count 2.58 10^6/uL (4.06-5.63); Red Cell Distribution Width 14.6 % (12-17); White Blood Count 6.1 10^3/uL (3.6-10.2)
[2023-09-13 06:41] LABS: Creatinine, Serum 0.55 mg/dL (0.67-1.17); eGFR CKD-EPI 111.4 (>60)
[2023-09-13 06:43] LABS: Calcium 8.9 mg/dL (8.6-10.3); Creatinine, Serum 0.53 mg/dL (0.67-1.17); Magnesium 1.7 mg/dL (1.9-2.7); Potassium 4.1 mmol/L (3.5-5.0); eGFR CKD-EPI 112.6 (>60)
[2023-09-13] MEDS: Mometasone/Formoter 100/5 MDI INH SCH ×2 (08:23→19:40)
[2023-09-13] MEDS ORDERED: Magnesium Sulfate 2 gm BAG 2 GM/50 ML BAG IVPB ONE (08:26)
[2023-09-13] MEDS ORDERED: Magnesium Sulfate IV 1GM/100ML 1 GM/100 ML BAG IV ONE (10:26)
[2023-09-13] MEDS: DULoxetine DR 30 mg CAP PO SCH (10:54)
[2023-09-13] MEDS: Cyanocobalamin INJ 1,000 MCG/ML VIAL 1 ML VIAL IM SCH (10:54)
[2023-09-13] MEDS: Insulin GLARGINE 100 un/ml 10 ml VIAL SUBCUT SCH ×2 (10:55→21:10)
[2023-09-13] MEDS: Saline NASAL SPRAY 0.65% BTL BOTH NARES PRN ×2 (11:13→19:26)
[2023-09-13] MEDS: Magnesium Hydroxide LIQ 30 ML UDC PO SCH (12:30)
[2023-09-13] MEDS ORDERED: Vancomycin Trough Check NOTE FOLLOW UP ONE (13:30)
[2023-09-13] MEDS ORDERED: Vancomycin 2,000 MG in NS 0.9% 500 ml BAG 500 ML IVPB SCH (14:00)
[2023-09-13] MEDS ORDERED: Lidocaine 1% MPF 5 ML VIAL INJ ONE (14:55)
[2023-09-14] MEDS: ZOSYN 3.375 GM Q8H per EXTENDED INFUSION IV SCH ×3 (04:38→16:05)
[2023-09-14] MEDS: Vancomycin 2,000 MG in NS 0.9% 500 ml BAG 500 ML IVPB SCH ×2 (05:39→20:25)
[2023-09-14] MEDS: Heparin 5000 UNITS/ML 1 mL VIAL SUBCUT SCH ×3 (05:42→22:41)
[2023-09-14 06:09] LABS: ABS Eosinophils 0.1 10^3/uL (0.0-0.5); ABS Lymphocytes 0.6 10^3/uL (1.0-4.8); ABS Monocytes 0.7 10^3/uL (0.0-1.1); ABS Neutrophils 5.1 10^3/uL (1.5-7.6); Eosinophil % 1.8 %; Hemoglobin 9.1 g/dL (13.2-16.3); Lymphocyte % 9.2 %; Mean Corpuscular Hemoglobin 33.9 pg (27-33); Mean Corpuscular Hgb Conc 33.8 g/dL (31-36); Mean Corpuscular Volume 100.3 fL (80-97); Mean Platelet Volume 8.3 fL (7.5-11.2); Platelet Count 370 10^3/uL (150-450); Red Blood Count 2.69 10^6/uL (4.06-5.63); Red Cell Distribution Width 15.3 % (12-17); White Blood Count 6.5 10^3/uL (3.6-10.2)
[2023-09-14 06:28] LABS: Creatinine, Serum 0.61 mg/dL (0.67-1.17); Magnesium 1.7 mg/dL (1.9-2.7); eGFR CKD-EPI 107.9 (>60)
[2023-09-14] MEDS: Mometasone/Formoter 100/5 MDI INH SCH ×2 (08:02→18:56)
[2023-09-14] MEDS: DULoxetine DR 30 mg CAP PO SCH (09:25)
[2023-09-14] MEDS: Cyanocobalamin INJ 1,000 MCG/ML VIAL 1 ML VIAL IM SCH (09:25)
[2023-09-14] MEDS: Insulin GLARGINE 100 un/ml 10 ml VIAL SUBCUT SCH ×2 (09:26→20:43)
[2023-09-14] MEDS: Saline NASAL SPRAY 0.65% BTL BOTH NARES PRN (10:13)
[2023-09-14] MEDS ORDERED: Magnesium Sulf 4 GM/100 ML IV 4,000 MG/100 ML BAG IVPB ONE (14:11)
[2023-09-14 14:22] LABS: C Reactive Protein 149.52 mg/L (<8.01)
[2023-09-14] MEDS: Morphine ORAL.SOLN 10 mg 2 mg/ml UDC 5 ml (10 mg) PO PRN (22:39)
[2023-09-15] MEDS: ZOSYN 3.375 GM Q8H per EXTENDED INFUSION IV SCH ×4 (00:49→23:36)
[2023-09-15] MEDS: Morphine ORAL.SOLN 10 mg 2 mg/ml UDC 5 ml (10 mg) PO PRN ×4 (03:41→20:46)
[2023-09-15] MEDS: Vancomycin 2,000 MG in NS 0.9% 500 ml BAG 500 ML IVPB SCH (05:45)
[2023-09-15] MEDS: Heparin 5000 UNITS/ML 1 mL VIAL SUBCUT SCH ×3 (05:50→20:51)
[2023-09-15 06:05] LABS: ABS Eosinophils 0.1 10^3/uL (0.0-0.5); ABS Lymphocytes 0.6 10^3/uL (1.0-4.8); ABS Monocytes 0.5 10^3/uL (0.0-1.1); ABS Neutrophils 3.8 10^3/uL (1.5-7.6); Eosinophil % 2.1 %; Hematocrit 26.1 % (38-53); Lymphocyte % 12.8 %; Mean Corpuscular Hemoglobin 34.2 pg (27-33); Mean Corpuscular Hgb Conc 34.5 g/dL (31-36); Mean Corpuscular Volume 99.4 fL (80-97); Mean Platelet Volume 8.4 fL (7.5-11.2); Platelet Count 396 10^3/uL (150-450); Red Blood Count 2.63 10^6/uL (4.06-5.63); Red Cell Distribution Width 15.3 % (12-17)
[2023-09-15 06:26] LABS: Calcium 8.8 mg/dL (8.6-10.3); Creatinine, Serum 0.64 mg/dL (0.67-1.17); Magnesium 1.9 mg/dL (1.9-2.7); eGFR CKD-EPI 106.4 (>60)
[2023-09-15] MEDS: Mometasone/Formoter 100/5 MDI INH SCH ×2 (07:26→20:14)
[2023-09-15] MEDS: DULoxetine DR 30 mg CAP PO SCH (09:40)
[2023-09-15] MEDS: Insulin GLARGINE 100 un/ml 10 ml VIAL SUBCUT SCH ×2 (09:40→20:45)
[2023-09-15] MEDS: Cyanocobalamin INJ 1,000 MCG/ML VIAL 1 ML VIAL IM SCH (09:40)
[2023-09-15] MEDS: CMCS:diPHENhydraMINE CREAM 2%(NF) 28 gm TUBE TOPICAL SCH ×2 (16:42→20:52)
[2023-09-16] MEDS ORDERED: Vancomycin Trough Check NOTE FOLLOW UP ONE (05:30)
[2023-09-16] MEDS: ZOSYN 3.375 GM Q8H per EXTENDED INFUSION IV SCH (07:32)
[2023-09-16 08:05] LABS: Creatinine, Serum 1.09 mg/dL (0.67-1.17); eGFR CKD-EPI 76.3 (>60)
[2023-09-16] MEDS: Mometasone/Formoter 100/5 MDI INH SCH ×2 (08:11→19:30)
[2023-09-16] MEDS: Morphine ORAL.SOLN 10 mg 2 mg/ml UDC 5 ml (10 mg) PO PRN ×3 (08:50→21:48)
[2023-09-16] MEDS: CMCS:diPHENhydraMINE CREAM 2%(NF) 28 gm TUBE TOPICAL SCH ×3 (08:50→22:38)
[2023-09-16 08:51] LABS: Vancomycin Trough 12.1 mcg/mL
[2023-09-16] MEDS: Insulin GLARGINE 100 un/ml 10 ml VIAL SUBCUT SCH ×2 (08:51→21:37)
[2023-09-16] MEDS: Cyanocobalamin INJ 1,000 MCG/ML VIAL 1 ML VIAL IM SCH (08:51)
[2023-09-16] MEDS: DULoxetine DR 30 mg CAP PO SCH (08:52)
[2023-09-16] MEDS: cefTRIAXone 2 gm/50 mL D5W 2 GM/50 ML BAG IV SCH (13:12)
[2023-09-16] MEDS: Enoxaparin 40 MG/0.4 ML SYR SUBCUT SCH (20:51)
[2023-09-17 06:53] LABS: Calcium 9.1 mg/dL (8.6-10.3); Creatinine, Serum 1.22 mg/dL (0.67-1.17); Magnesium 1.9 mg/dL (1.9-2.7); Potassium 4.3 mmol/L (3.5-5.0); eGFR CKD-EPI 66.6 (>60)
[2023-09-17 07:35] LABS: Hematocrit 27.8 % (38-53); Mean Corpuscular Hemoglobin 33.6 pg (27-33); Mean Corpuscular Hgb Conc 32.5 g/dL (31-36); Mean Corpuscular Volume 103.5 fL (80-97); Mean Platelet Volume 8.5 fL (7.5-11.2); Platelet Count 424 10^3/uL (150-450); Red Blood Count 2.69 10^6/uL (4.06-5.63); Red Cell Distribution Width 15.3 % (12-17); White Blood Count 4.7 10^3/uL (3.6-10.2)
[2023-09-17] MEDS ORDERED: Lactated Ringers 1000 ml BAG 1,000 ML IV ONE ×2 (07:45→07:47)
[2023-09-17] MEDS: Mometasone/Formoter 100/5 MDI INH SCH ×2 (07:50→19:35)
[2023-09-17] MEDS: Morphine ORAL.SOLN 10 mg 2 mg/ml UDC 5 ml (10 mg) PO PRN ×2 (09:17→21:18)
[2023-09-17] MEDS: Cyanocobalamin INJ 1,000 MCG/ML VIAL 1 ML VIAL IM SCH (09:18)
[2023-09-17] MEDS: DULoxetine DR 30 mg CAP PO SCH (09:18)
[2023-09-17] MEDS: CMCS:diPHENhydraMINE CREAM 2%(NF) 28 gm TUBE TOPICAL SCH ×3 (09:19→21:41)
[2023-09-17] MEDS: Insulin GLARGINE 100 un/ml 10 ml VIAL SUBCUT SCH ×2 (09:19→21:40)
[2023-09-17] MEDS ORDERED: Vancomycin per Pharmacy 1 EA NOTE FOLLOW UP SCH (12:00)
[2023-09-17] MEDS ORDERED: Vancomycin 2,000 MG in NS 0.9% 500 ml BAG 500 ML IVPB SCH (12:30)
[2023-09-17] MEDS ORDERED: Vancomycin 2,000 MG in NS 0.9% 500 ml BAG 500 ML IVPB ONE (12:30)
[2023-09-17] MEDS: cefTRIAXone 2 gm/50 mL D5W 2 GM/50 ML BAG IV SCH (17:24)
[2023-09-17] MEDS: Enoxaparin 40 MG/0.4 ML SYR SUBCUT SCH (21:21)
[2023-09-18] MEDS: Vancomycin 1000 MG in NS 0.9% 250 ML IVPB SCH ×2 (00:47→12:37)
[2023-09-18] MEDS: Morphine ORAL.SOLN 10 mg 2 mg/ml UDC 5 ml (10 mg) PO PRN ×2 (06:25→19:44)
[2023-09-18 06:41] LABS: ABS Lymphocytes 0.5 10^3/uL (1.0-4.8); ABS Monocytes 0.4 10^3/uL (0.0-1.1); ABS Neutrophils 4.4 10^3/uL (1.5-7.6); ABS Nucleated RBC 0.01 10^3/ul; Hematocrit 28.2 % (38-53); Hemoglobin 9.6 g/dL (13.2-16.3); Lymphocyte % 9.2 %; Mean Corpuscular Hemoglobin 33.9 pg (27-33); Mean Corpuscular Volume 99.5 fL (80-97); Mean Platelet Volume 8.5 fL (7.5-11.2); Nucleated Red Blood Cells % 0.1 %/100WBC (0.0-0.8); Platelet Count 446 10^3/uL (150-450); Red Blood Count 2.83 10^6/uL (4.06-5.63); Red Cell Distribution Width 15.5 % (12-17); White Blood Count 5.3 10^3/uL (3.6-10.2)
[2023-09-18] MEDS: Mometasone/Formoter 100/5 MDI INH SCH ×2 (07:49→19:27)
[2023-09-18 08:17] LABS: C Reactive Protein 72.43 mg/L (<8.01); Calcium 9.4 mg/dL (8.6-10.3); Creatinine, Serum 0.91 mg/dL (0.67-1.17); Magnesium 1.9 mg/dL (1.9-2.7); Phosphorus 3.5 mg/dL (2.5-5.0); Potassium 4.5 mmol/L (3.5-5.0); eGFR CKD-EPI 94.7 (>60)
[2023-09-18] MEDS: Insulin GLARGINE 100 un/ml 10 ml VIAL SUBCUT SCH ×2 (09:17→19:46)
[2023-09-18] MEDS: Cyanocobalamin INJ 1,000 MCG/ML VIAL 1 ML VIAL IM SCH (09:17)
[2023-09-18] MEDS: DULoxetine DR 30 mg CAP PO SCH (09:23)
[2023-09-18] MEDS: CMCS:diPHENhydraMINE CREAM 2%(NF) 28 gm TUBE TOPICAL SCH (09:26)
[2023-09-18] MEDS: cefTRIAXone 2 gm/50 mL D5W 2 GM/50 ML BAG IV SCH (14:29)
[2023-09-18] MEDS: Enoxaparin 40 MG/0.4 ML SYR SUBCUT SCH (19:47)
[2023-09-19] MEDS: Vancomycin 1000 MG in NS 0.9% 250 ML IVPB SCH ×2 (00:50→16:38)
[2023-09-19] MEDS: Morphine ORAL.SOLN 10 mg 2 mg/ml UDC 5 ml (10 mg) PO PRN ×3 (02:39→20:29)
[2023-09-19] MEDS: Mometasone/Formoter 100/5 MDI INH SCH ×2 (08:51→20:30)
[2023-09-19] MEDS: Insulin GLARGINE 100 un/ml 10 ml VIAL SUBCUT SCH ×2 (09:00→20:31)
[2023-09-19] MEDS: DULoxetine DR 30 mg CAP PO SCH (09:20)
[2023-09-19] MEDS ORDERED: Vancomycin Trough Check NOTE FOLLOW UP ONE (12:00)
[2023-09-19] MEDS: cefTRIAXone 2 gm/50 mL D5W 2 GM/50 ML BAG IV SCH (16:38)
[2023-09-19] MEDS: Enoxaparin 40 MG/0.4 ML SYR SUBCUT SCH (20:31)
[2023-09-20] MEDS: Mometasone/Formoter 100/5 MDI INH SCH ×2 (07:28→20:05)
[2023-09-20] MEDS: Insulin GLARGINE 100 un/ml 10 ml VIAL SUBCUT SCH ×2 (09:31→21:02)
[2023-09-20] MEDS: DULoxetine DR 30 mg CAP PO SCH (09:33)
[2023-09-20] MEDS: Morphine ORAL.SOLN 10 mg 2 mg/ml UDC 5 ml (10 mg) PO PRN ×2 (12:22→21:00)
[2023-09-20] MEDS: Enoxaparin 40 MG/0.4 ML SYR SUBCUT SCH (21:00)
[2023-09-21] MEDS: Mometasone/Formoter 100/5 MDI INH SCH (07:04)
[2023-09-21] MEDS: DULoxetine DR 30 mg CAP PO SCH (10:03)
[2023-09-21] MEDS: Insulin GLARGINE 100 un/ml 10 ml VIAL SUBCUT SCH (10:04)
[2023-09-21 10:51] VITALS: BP 144/64
[2023-09-21] MEDS: Morphine ORAL.SOLN 10 mg 2 mg/ml UDC 5 ml (10 mg) PO PRN (11:45)
== END 2023-09-21 12:45 | disposition home or self-care (01) | DRG 721 ==
LOC: ED 16:52 → EDHOLD 16:52 → SUATTDRO 20:23 → EDHOLD 09-10 10:13 → MED 09-10 11:17 → SUATTDRO 09-11 14:00
PROVIDERS: ADMIT Internal Medicine; ATTEND Internal Medicine

== ENCOUNTER 2024-01-01 10:28 | Inpatient (IN) ==
[2024-01-01] MEDS: Morphine 4 MG/ML VIAL (1 ml) IV ONE (11:50)
[2024-01-01 12:01] LABS: ABS Eosinophils 0.1 10^3/uL (0.0-0.5); ABS Lymphocytes 0.6 10^3/uL (1.0-4.8); ABS Monocytes 0.5 10^3/uL (0.0-1.1); ABS Neutrophils 7.5 10^3/uL (1.5-7.6); ABS Nucleated RBC 0.01 10^3/ul; Hematocrit 34.5 % (38-53); Hemoglobin 11.9 g/dL (13.2-16.3); Lymphocyte % 6.6 %; Mean Corpuscular Hemoglobin 31.7 pg (27-33); Mean Corpuscular Hgb Conc 34.5 g/dL (31-36); Mean Corpuscular Volume 91.7 fL (80-97); Mean Platelet Volume 9.1 fL (7.5-11.2); Nucleated Red Blood Cells % 0.1 %/100WBC (0.0-0.8); Platelet Count 182 10^3/uL (150-450); Red Blood Count 3.76 10^6/uL (4.06-5.63); Red Cell Distribution Width 15.8 % (12-17); White Blood Count 8.7 10^3/uL (3.6-10.2)
[2024-01-01 12:51] LABS: Albumin 3.7 g/dL (3.2-5.2); Albumin/Globulin Ratio 1.2 (1-3); Calcium 9.5 mg/dL (8.6-10.3); Creatinine, Serum 1.2 mg/dL (0.67-1.17); Globulin 3.1 g/dL (2-4); Potassium 3.9 mmol/L (3.5-5.0); Total Bilirubin 0.5 mg/dL (0.2-1.0); Total Protein 6.8 g/dL (6.4-8.9)
[2024-01-01 13:33] LABS: High Sensitivity Troponin 1 Hr 5 pg/mL (<20)
[2024-01-01] MEDS: HYDROmorphone 1 MG/1 ML SYRINGE IV SLOW PU ONE (14:03)
[2024-01-01] MEDS ORDERED: Clindamycin 900 MG/50 **NS BAG 900 MG/50 ML BAG ONE (15:09)
[2024-01-01] MEDS ORDERED: fentaNYL 100 mcg/2 ml 50 MCG/ML VIAL ONE ×2 (15:10→17:12)
[2024-01-01] MEDS ORDERED: Midazolam 2 mg/2 ml VIAL 1 mg/ml 2 ml VIAL (2 mg) ONE (15:10)
[2024-01-01] MEDS ORDERED: Lidocaine 2% PF 10 ML AMP (OR) ONE (15:11)
[2024-01-01] MEDS ORDERED: Propofol 10 MG/ML 20 ML BTL ONE ×2 (15:11→15:55)
[2024-01-01] MEDS ORDERED: Lidocaine 2% PF 5 ML VIAL ONE (15:12)
[2024-01-01] MEDS ORDERED: Bupivacaine 0.5% 50 ML MDV VIAL ONE (15:18)
[2024-01-01] MEDS ORDERED: Naloxone Nasal Spray 4 MG/0.1 ML NASAL.SPR INTRANASAL PRN (15:19)
[2024-01-01] MEDS ORDERED: Albuterol HFA INHALER 8 gm MDI INH PRN (15:19)
[2024-01-01] MEDS ORDERED: Morphine 2 MG/ML SYRINGE IV PRN ×2 (15:45→19:34)
[2024-01-01] MEDS ORDERED: HYDROmorphone 0.5 MG/0.5 ML SYRINGE ONE (15:51)
[2024-01-01] MEDS ORDERED: Ondansetron 4 mg VIAL 2 MG/ML 2 ml VIAL ONE (15:55)
[2024-01-01] MEDS ORDERED: Senna TAB 8.6 mg TAB PO PRN ×2 (16:13→19:34)
[2024-01-01] MEDS ORDERED: Nicotine GUM 4MG FRUIT FLAVOR PO PRN (16:25)
[2024-01-01] MEDS ORDERED: Dextrose 50% Syringe 50 ml 25 GM/50 ML SYRINGE IV PUSH PRN (16:27)
[2024-01-01] MEDS ORDERED: Metoclopramide 5 MG/ML VIAL (10 mg) IV PRN (17:11)
[2024-01-01] MEDS ORDERED: Naloxone 0.4 mg VIAL 0.4 mg/ml 1 ml VIAL IV PRN (17:11)
[2024-01-01] MEDS ORDERED: Ondansetron 4 mg VIAL 2 MG/ML 2 ml VIAL IV PRN ×2 (17:11→19:34)
[2024-01-01] MEDS: fentaNYL 100 mcg/2 ml 50 MCG/ML VIAL IV PRN (17:16)
[2024-01-01] MEDS ORDERED: NS 0.45% 1000 ml BAG 1,000 ML IV SCH (18:00)
[2024-01-01] MEDS ORDERED: Magnesium Hydroxide LIQ 30 ML UDC PO PRN (19:34)
[2024-01-01] MEDS ORDERED: Polyethylene Glycol 3350 17 GM PACKET PO PRN (19:34)
[2024-01-01 19:39] LABS: Hematocrit 33.4 % (38-53); Hemoglobin 11.4 g/dL (13.2-16.3)
[2024-01-01] MEDS: Mometasone/Formoter 100/5 MDI INH SCH (20:03)
[2024-01-01] MEDS: Buffered Lidocaine 1% SYRIN 1 ml INTRADERM ONE (20:19)
[2024-01-01] MEDS: Acetaminophen IV 1 GM/100ML 1,000 MG/100 ML BAG IV ONE (20:19)
[2024-01-01] MEDS: Simvastatin 20 mg TAB (NF) PO SCH (20:37)
[2024-01-01] MEDS: Magnesium Hydroxide LIQ 30 ML UDC PO SCH ×2 (20:43)
[2024-01-01] MEDS: Lactulose 30 ml UDC PO SCH (20:43)
[2024-01-01] MEDS: Lactated Ringers 1000 ml BAG 1,000 ML IV SCH (20:49)
[2024-01-01] MEDS: Insulin GLARGINE 100 un/ml 10 ml VIAL SUBCUT SCH (22:07)
[2024-01-01] MEDS: Scopolamine 1 mg/72hr PATCH TRANSDERM ONE (22:09)
[2024-01-01] MEDS: Clindamycin 600 MG/D5W BAG 600 MG/50 ML BAG IV SCH (23:34)
[2024-01-02 06:05] LABS: Hemoglobin 10.2 g/dL (13.2-16.3); Mean Platelet Volume 9.5 fL (7.5-11.2); Platelet Count 149 10^3/uL (150-450)
[2024-01-02 07:41] LABS: Albumin 3.3 g/dL (3.2-5.2); Albumin/Globulin Ratio 1.1 (1-3); Calcium 8.6 mg/dL (8.6-10.3); Creatinine, Serum 1.14 mg/dL (0.67-1.17); Globulin 2.9 g/dL (2-4); Potassium 3.9 mmol/L (3.5-5.0); Total Bilirubin 0.7 mg/dL (0.2-1.0); Total Protein 6.2 g/dL (6.4-8.9); eGFR CKD-EPI 72.3 (>60)
[2024-01-02] MEDS: DULoxetine DR 30 mg CAP PO SCH (08:34)
[2024-01-02] MEDS: Vitamin THERAPEUTIC TAB PO SCH (08:34)
[2024-01-02] MEDS: Enoxaparin 40 MG/0.4 ML SYR SUBCUT SCH (11:40)
[2024-01-02] MEDS: HYDROmorphone 1 MG/1 ML SYRINGE IV SLOW PU PRN (11:40)
[2024-01-02] MEDS: Lactated Ringers 1000 ml BAG 1,000 ML IV SCH (19:27)
[2024-01-02] MEDS: ceFAZolin 1 GM ADVAN 1 GM in NS 0.9% 50 ML 50 ML IVPB SCH (19:27)
[2024-01-02] MEDS: Morphine ORAL.SOLN 10 mg 2 mg/ml UDC 5 ml (10 mg) PO PRN (20:18)
[2024-01-02] MEDS: Simvastatin 20 mg TAB (NF) PO SCH (21:45)
[2024-01-03 06:03] LABS: Hematocrit 25.7 % (38-53); Hemoglobin 8.9 g/dL (13.2-16.3); Mean Platelet Volume 9.4 fL (7.5-11.2); Platelet Count 133 10^3/uL (150-450)
[2024-01-03 06:23] LABS: Albumin 3.2 g/dL (3.2-5.2); Albumin/Globulin Ratio 1.1 (1-3); Calcium 8.4 mg/dL (8.6-10.3); Creatinine, Serum 1.19 mg/dL (0.67-1.17); Globulin 2.9 g/dL (2-4); Potassium 4.3 mmol/L (3.5-5.0); Total Bilirubin 0.3 mg/dL (0.2-1.0); Total Protein 6.1 g/dL (6.4-8.9); eGFR CKD-EPI 68.6 (>60)
[2024-01-03] MEDS: Magnesium Hydroxide LIQ 30 ML UDC PO PRN (15:06)
[2024-01-03] MEDS: Polyethylene Glycol 3350 17 GM PACKET PO PRN (15:06)
[2024-01-04 06:11] LABS: Hematocrit 25.7 % (38-53); Hemoglobin 9.1 g/dL (13.2-16.3); Mean Platelet Volume 9.8 fL (7.5-11.2); Platelet Count 146 10^3/uL (150-450)
[2024-01-04 06:27] LABS: Albumin 3.3 g/dL (3.2-5.2); Albumin/Globulin Ratio 1.1 (1-3); Calcium 8.7 mg/dL (8.6-10.3); Creatinine, Serum 0.92 mg/dL (0.67-1.17); Globulin 2.9 g/dL (2-4); Potassium 4.5 mmol/L (3.5-5.0); Total Bilirubin 0.3 mg/dL (0.2-1.0); Total Protein 6.2 g/dL (6.4-8.9); eGFR CKD-EPI 93.5 (>60)
[2024-01-04] MEDS ORDERED: HYDROmorphone 1 MG/1 ML SYRINGE IV SLOW PU PRN (08:48)
[2024-01-04] MEDS: Morphine ORAL.SOLN 10 mg 2 mg/ml UDC 5 ml (10 mg) PO PRN (10:30)
[2024-01-04 13:38] VITALS: BP 142/73
== END 2024-01-04 14:20 | DRG 308 ==
LOC: EDHOLD 10:28 → ED 10:28 → INTOOBSV 14:04 → OBSVTOIN 14:04 → SUATTDRO 14:04 → AA 14:44 → SSU 18:33
PROVIDERS: ADMIT Internal Medicine; ATTEND Internal Medicine